=== PATIENT | male | born 1950 | race Caucasian/White ===

== ENCOUNTER 2017-03-15 07:37 | Day surgery (SDC) | payer OTHER ==
[2017-03-15] VITALS (7 sets, daily range): BP systolic 142–145; BP diastolic 67–76; PULSE 66–84; RESP 16–17; TEMP 98.2–98.6; O2SAT 96–100
[~2017-03-15] VITALS: Ht 170.2 cm; Wt 93.2 kg
[2017-03-15] MEDS: NS 1000P @30 MLS/HR (KVO) IV SCH ×2 (08:15→09:00)
[2017-03-15 08:39] LABS: AUTOMATED NEUTROPHIL # 5.9 TH/MM3 (1.8-7.7); BASOPHIL % 0.6 % (0.0-2.0); EOSINOPHIL # 0.1 TH/MM3 (0-0.4); EOSINOPHIL % 1.1 % (0.0-4.0); HEMATOCRIT 44.3 % (39.0-51.0); HEMO FLAGS DIFF FINAL; LYMPH % 16.7 % (9.0-44.0); LYMPHOCYTE # 1.3 TH/MM3 (1.0-4.8); MEAN CELL VOLUME 85.1 FL (80.0-100.0); MEAN CORPUSCULAR HEMOGLOBIN 28.3 PG (27.0-34.0); MEAN CORPUSCULAR HGB CONC 33.3 % (32.0-36.0); MONO % 7.1 % (0.0-8.0); NEUT % 74.5 % (16.0-70.0); PLATELET COUNT 285 TH/MM3 (150-450); RED CELL DISTRIBUTION WIDTH 14.6 % (11.6-17.2); WHITE BLOOD COUNT 7.9 TH/MM3 (4.0-11.0)
[2017-03-15] MEDS ORDERED: BUSP5TAB PO (08:40)
[2017-03-15] MEDS ORDERED: SACU1TAB PO (08:40)
[2017-03-15] MEDS ORDERED: CHOL5000 PO (08:40)
[2017-03-15] MEDS ORDERED: LIPI40TA PO (08:40)
[2017-03-15] MEDS ORDERED: TAMS0.4C4 PO (08:40)
[2017-03-15] MEDS ORDERED: SPIR25TA PO (08:40)
[2017-03-15] MEDS ORDERED: ASPI-147 PO (08:40)
[2017-03-15] MEDS ORDERED: METO50TA PO (08:40)
[2017-03-15 08:47] LABS: PROTHROMBIN TIME - PATIENT 11.4 SEC (9.8-11.6)
[2017-03-15] MEDS ORDERED: HEPARIN-NS/PF INJ 500 ML ONE (13:59)
[2017-03-15] MEDS ORDERED: MIDAZOLAM HCL 2 MG/2 ML VIAL ONE (14:00)
[2017-03-15] MEDS ORDERED: NITROGLYCERIN INJ 5 ML ONE (14:00)
[2017-03-15] MEDS ORDERED: VERAPAMIL HCL 5 MG/2 ML VIAL ONE (14:00)
[2017-03-15] MEDS ORDERED: HEPARIN SODIUM - IV 10,000 UNITS/10 ML VIAL ONE ×2 (14:00→15:16)
[2017-03-15] MEDS ORDERED: IOHEXOL 350 MG/ML 100 ML BTL (for Cath Lab) OTHER ONE (14:13)
[2017-03-15] MEDS ORDERED: IOHEXOL 350 MG/ML 50 ML BTL (for Cath Lab) OTHER ONE (14:13)
[2017-03-15] MEDS ORDERED: TICAGRELOR 90 MG TAB PO ONE (16:19)
[2017-03-15] MEDS ORDERED: SODIUM CHLOR 0.9% 1000 ML INJ 1,000 ML IV SCH (16:32)
--- NOTE | 2017-03-15 16:32 | CATHPROC ---
[facility] Report Study Information Study Number Admission Scheduled Start Study Start [id number] Mar 15 2017 7:37AM 03/15/2017 Mar 15 2017 9:46AM [place] [facility] Cardiac Catheterization Admit Source Facility Department Other [facility] - [employer] Physician and Clinical Staff Initial Salvatore Wright Powertrain Control Systems Engineer Óscar RN, Giovany Recorder Juan Pablo Yeh,RT(R) John Moulton RCIS(BS) Procedures Performed Procedure Location (Site) Vessel Name Coronary Angiograms LCA Left Coronary Coronary Angiograms RCA Right Coronary Drug Eluting Inflatio LAD Mid Left Coronary PTCA LAD Mid Left Coronary Wire insertion Fem Art (right) Femoral Art Wire insertion LAD Mid Left Coronary Wire insertion Radial (right) Radial Art. Equipment Time Breakfast Supervisor Description Size Mfg Part Number Used/Scraped [id number] 15:26 BRADSHAW [employer] WIRE, ASAHI PROWATER 180CM 180CM Used *[id number] WIRE, BALANCE MIDDLEWEIGHT [id number] 15:10 [employer]AD[employer]W [employer] C[employer] 190CM Used 190CM *[id number] TRANSDUCER, TRUWAVE [id number] 14:07 BENZ IVERSON * Used W/STOCKCOCK *[id number] [employer]/ EP 15:10 GUIDEWIRE, BMW 190CM 190CM 6720 Used PACER [id number] *[id number] *[id number] [id number] *[id number] 14:07 Dragon Tail PACK, CCL CUSTOM * Used *[id number] 14:07 Dragon Tail SUPPORT, ARTERIAL ADULT 32860 *[id number] Used BALLOON, 2.25 X 10MM [id number] 15:16 MEDTRONIC 10MM Used EUPHORA *[id number] BALLOON, 2.25 X 6MM NC [id number] 15:37 MEDTRONIC 6MM Used EUPHORA *[id number] BALLOON, 2.5 X 8MM NC [id number] 16:00 MEDTRONIC 8MM Used EUPHORA *[id number] STENT, 2.5 12 RESOLUTE [id number] 15:22 MEDTRONIC 2.5 12 Used INTEGRITY RX *[id number] 15:17 Biomode - Biomolecular Determination 30 STIVEN INDEFLATOR Used *[id number] BAND, RADIAL COMPRESSION TR [id number] 16:10 Biomode - Biomolecular Determination 24CM Used SHORT 24 *[id number] 14:07 Biomode - Biomolecular Determination WIRE, EXCHANGE 260CM 3MMJ 260CM Used *[id number] 14:07 NAMIC MANIFOLD, 4 PORT * Used *[id number] 14:07 NYCOMED OMNIPAQUE, 350 MG, 150ML 150ML [id number] Used [id number] 14:07 SIGEL MEDICAL BLANKET,WARM AIR CCL * Used *[id number] SHEATH, FR6 TRANSRADIAL [id number] 14:07 TERUMIdenIve MEDICAL FR 6 Used SLENDER 10CM *[id number] 14:54 [place]OL[place]O PRIME WIRE, VERRATA 185CM 185CM 15737 *[id number] Used 15:00 [place]OL[place]O PRIME WIRE, VERRATA 185CM 185CM 50197 *[id number] Used Equipment Model, Serial, Lot Number and Expiration Data Description Model Number Serial Number Lot Number Expiration Date PRIME WIRE, VERRATA 185CM [id number] 02-03-2020 STENT, 2.5 12 RESOLUTE [id number] 01-14-2018 INTEGRITY RX History: Allergies Allergy Reaction Trazodone History: Risk Factors Family History of Hypertension Dyslipidemia Previous [facility] Previous Heart Failure Premature CAD Yes Yes Yes Yes Yes Prior Valve Prior PCI Prior CABG Surgery No No No Cerebrovascular Peripheral Artery Chronic Lung On Dialysis Diabetes Disease Disease Disease No No No No No History: Stress Tests Stress or Imaging Studies Performed Yes Standard Exercise Stress Test No Stress Echo No Stress Test SPECT Stress Test SPECT Result Stress Test SPECT Ischemia Risk/Extent Yes Positive High Stress Test CMR No Cardiac CTA Coronary Calcium Score No No History: Other Current Smoker Method Quit Packs a Day Years Used Pack Years No Cigarettes 25 Years Ago 30 30 Labs Hgb (g/dl) Hct (%) WBC (l/cumm) Platelets (thousands) 11.60-17.00 35.00-51.00 4.00-11.00 150.00-450.00 14.7 44.3 7.9 285 Glucose (mg/dl) BUN (mg/dl) Creatinine (mg/dl) BUN:Creatinine (1:x) 74.00-106.00 7.00-18.00 0.50-1.30 10.00-20.00 103 12 0.8 15 Na (meq/l) K (meq/l) 136.00-145.00 3.50-5.10 134 4.9 INR (PTT:PT) 0.90-1.10 1 CPK-MB (ng/ML) 0.50-3.60 Not Drawn Medication Medication Total Dose (Bolus/Oral) Medication Total Dosage/Unit 1% XYLOCAINE 5 mL BRILINTA 180 mg FENTANYL 25 mcg HEPARIN 1000 units RADIAL COCKTAIL 7 mL (Bolus) VERSED 0.5 mg Medications (Bolus/Oral) Medication Time Given Dosage/Unit Administered By Reason FENTANYL 03/15/2017 2:13:39 PM 25 mcg Giovany Cantrell RN 25 mcg FENTANYL given in lab by Giovany Cantrell RN in Left Antecubital via Peripheral IV. Ordered by Salvatore Acosta. 1% XYLOCAINE 03/15/2017 2:13:53 PM 5 mL Salvatore Walker 5 mL 1% XYLOCAINE given in lab by Salvatore Walker in Right Radial via Subcutaneous. Ordered by Salvatore Winn. VERSED 03/15/2017 2:14:00 PM 0.5 mg Giovany Cantrell RN 0.5 mg VERSED given in lab by Giovany Cantrell RN in Left Antecubital via Peripheral IV. Ordered by Salvatore Sanford. RADIAL COCKTAIL 03/15/2017 2:17:38 PM 7 mL (Bolus) Giovany Cantrell RN 7 mL (Bolus) RADIAL COCKTAIL given in lab by Giovany Cantrell RN in Right Radial via Radial. Using [Solut ion Name]. Ordered by Salvatore Walker. 2.5mg Verapamil, 200mcg Nitro, 3800units heparin HEPARIN 03/15/2017 3:18:50 PM 1000 units Giovany Cantrell RN 1000 units HEPARIN given in lab by Giovany Cantrell RN via Peripheral IV. Ordered by Salvatore Walker. BRILINTA 03/15/2017 4:21:27 PM 180 mg Giovany Cantrell RN 180 mg BRILINTA given in lab by Giovany Cantrell RN via Oral. Ordered by Salvatore Walker. Medication (Drip) Medication Time Given Dosage/Unit Concentration/Unit Diluent (ml) Solution IV Solutions 03/15/2017 2:03:13 PM 0 mL (IV) 500 NaCl .9 Patient arrived on IV Solutions given by Salvatore Walker in Left Antecubital via Peripheral IV. Pum p/Drip Flow = 20 ml/hr using NaCl .9. Ordered by Salvatore Walker. Initial Case Assessment Cardiovascular HR Rhythm NIBP Chest Pain 89 sr 150/77 0 Edema Present Skin color Skin None Normal Warm Dry Circulatory - Right Pulses Dorsalis Pedis Femoral Radial 1 1 2 Scale (0,1,2,3,4,d) Circulatory - Left Pulses Dorsalis Pedis Femoral Radial 1 1 Scale (0,1,2,3,4,d) Neurological State Oriented to time-place- Alert Moves all extremities person Respiration - General Respiration Rate SpO2 (%) O2 (lpm) (B/min) 18 98 0 Final Case Assessment Cardiovascular HR Rhythm NIBP Chest Pain 76 sr 120/79 0 Edema Present Skin color Skin None Normal Warm Dry Circulatory - Right Pulses Dorsalis Pedis Femoral Radial 1 1 2 Scale (0,1,2,3,4,d) Circulatory - Left Pulses Dorsalis Pedis Femoral Radial 1 1 Scale (0,1,2,3,4,d) Neurological State Oriented to time-place- Alert Moves all extremities person Respiration - General Respiration Rate SpO2 (%) O2 (lpm) (B/min) 18 98 0 Chronological Log Time Study Chronological Log 13:50:46 Patient arrived via Bed. 13:50:47 Patient Name, D.O.B, / Armband Verified By R.N. 13:50:48 Consent signed by the physician and the patient and verified by the [employer] staff. 13:50:49 Pre-op and post- op instructions given; patient acknowledges understanding of instructions. 13:51:03 Verbal Stimulation=2 Physical Stimulation=2 Airway=2 Respiration=2 TOTAL=8. (0=absent, 1=li mited, 2=present) 13:51:11 Presedation assessment performed by [employer] RN. 13:51:13 Patient has been NPO for More than 6Hrs. Vitals capture started with the following parameters, Patient=Adult, Interval=5 min, Initial Pr ofyien=292 mmHg, 13:59:28 Deflation Rate=5 mmHg, Cuff placed on Right Arm 14:00:07 HR=81 bpm, LLMS=250/77 mmhg, SpO2=99.0 %, Resp=19 B/min, Walsh=2 14:02:39 Skin Breakdown-none present per patient. 14:02:54 A # 20 IV was noted in the Antecubital (left). Grade = 0 Patient arrived on IV Solutions given by Salvatore Walker in Left Antecubital via Peripheral I V. Pump/Drip Flow = 20 14:03:13 ml/hr using NaCl .9. Ordered by Salvatore Walker. 14:03:36 History and physical on the chart or being dictated. Assessment: Initial Case, HR=89 BPM, Rhythm=sr, YKLK=191/77 mmhg, Chest Pain=0, Edema=None, Col or=Normal, Skin = Warm, Dry Right Pulses: Robin Ped=1, Femoral=1, Radial=2 14:03:38 Left Pulses: Robin Ped=1, Femoral=1 Neurological: State=Alert, Ox3, PROCTOR Respiration: Resp=18 B/min, SpO2=98 %, O2=0 lpm 14:03:42 Reference ECG taken 14:04:10 Bilateral groins and right radial prepped with 2% chlorhexidine, and with a 3 min. waiting time. 14:05:08 HR=83 bpm, UTGW=985/75 mmhg, SpO2=99.0 %, Resp=21 B/min, Walsh=2 14:09:35 MD arrived. 14:09:59 Pressure channel 1 zeroed. 14:10:09 HR=79 bpm, MVPV=836/77 mmhg, SpO2=98.0 %, Resp=16 B/min, Walsh=2 Time Out. Correct patient, correct procedure,correct physician, ,power injector not loaded with contrast with surgical 14:12:37 team present. Time Out Concurred by MD, individual staff and REVIEW TRAINER in procedure. Not loaded at t his time. 14:13:09 Presedation re-assessment performed by [employer] RN. 14:13:11 Case Start 14:13:35 Verbal Stimulation=2 Physical Stimulation=2 Airway=2 Respiration=2 TOTAL=8. (0=absent, 1=li mited, 2=present) 14:13:39 25 mcg FENTANYL given in lab by Giovany Cantrell RN in Left Antecubital via Peripheral IV. Orde red by Salvatore Walker. 14:13:53 5 mL 1% XYLOCAINE given in lab by Salvatore Walker in Right Radial via Subcutaneous. Order ed by Salvatore Walker. 14:14:00 0.5 mg VERSED given in lab by Giovany Cantrell RN in Left Antecubital via Peripheral IV. Ordere d by Salvatore Walker. 14:15:08 HR=83 bpm, KGBN=589/77 mmhg, SpO2=99.0 %, Resp=12 B/min, Walsh=2 14:17:12 Access site was Radial Artery. right radial A SHEATH, FR6 TRANSRADIAL SLENDER 10CM FR 6 was advanced into the Radial (right) using the Perc utaneous 14:17:24 technique. 7 mL (Bolus) RADIAL COCKTAIL given in lab by Giovany Cantrell RN in Right Radial via Radial. Using [Solution Name]. 14:17:38 Ordered by Salvatore Walker. 2.5mg Verapamil, 200mcg Nitro, 3800units heparin A JR 4.0 INFINITI CATHETER FR 5 was advanced over a wire. OMNIPAQUE, 350 MG, 150ML 150ML was us ed for 14:19:03 injections. 14:20:07 HR=98 bpm, OUTD=711/74 mmhg, SpO2=99.0 %, Resp=21 B/min, Walsh=2 Recorded Pressure: LV, HR=97, Condition=Condition 1 14:20:34 (Left Ventricle) LV 116/4/4 Recorded Pressure: LV, Ao, HR=99, Condition=Condition 1 14:21:04 (Left Ventricle) LV 118/5/7, (Aorta) Ao 114/67/86 14:21:19 The RCA was injected and visualized at various angles. OMNIPAQUE, 350 MG, 150ML 150ML used . After removing the current catheter a JL 3.5 INFINITI CATHETER FR 5 was advanced over a WIRE, E XCHANGE 260CM 14:24:32 3MMJ 260CM. 14:25:04 CY=668 bpm, FIRD=767/78 mmhg, SpO2=96.0 %, Resp=17 B/min, Walsh=2 14:25:43 The LCA was injected and visualized at various angles. OMNIPAQUE, 350 MG, 150ML 150ML used . Recorded Pressure: Ao, HR=99, Condition=Condition 1 14:26:45 (Aorta) Ao 127/65/93 14:30:05 HR=89 bpm, TZBR=166/71 mmhg, SpO2=97.0 %, Resp=13 B/min, Walsh=2 After removing the current catheter a JL 3.0 GUIDE CATHETER FR 6 was advanced over a WIRE, EXCH RYANN 260CM 14:33:29 3MMJ 260CM. 14:35:08 HR=81 bpm, QWJK=344/70 mmhg, SpO2=93.0 %, Resp=15 B/min, Walsh=2 14:40:42 HR=76 bpm, MDST=554/69 mmhg, SpO2=97.0 %, Resp=19 B/min, Walsh=2 14:45:08 HR=77 bpm, PUUU=500/71 mmhg, SpO2=96.0 %, Resp=19 B/min 14:50:07 HR=77 bpm, CQJP=115/73 mmhg, SpO2=98.0 %, Resp=15 B/min, Walsh=2 14:53:35 A PRIME WIRE, VERRATA 185CM 185CM was inserted via Radial (right). 14:55:06 HR=82 bpm, HYUM=152/72 mmhg, SpO2=96.0 %, Resp=16 B/min, Walsh=2 14:59:51 Pressure wire removed. Not working properly. 15:00:10 HR=77 bpm, BRPK=680/64 mmhg, SpO2=97.0 %, Resp=17 B/min, Walsh=2 15:02:26 A PRIME WIRE, VERRATA 185CM 185CM was inserted via Radial (right). 15:05:11 HR=75 bpm, ZHRE=014/65 mmhg, SpO2=96.0 %, Resp=21 B/min, Walsh=2 15:08:00 Interventional wire has crossed the lesion 15:08:42 Flow Wire was was placed in the LAD Mid. The FFR measures. The IFR measures 0.83 Percent. 15:10:06 HR=76 bpm, VRUO=718/71 mmhg, SpO2=97.0 %, Resp=18 B/min, Walsh=2 15:11:08 Activated Clotting Time Drawn 15:12:20 A WIRE, BALANCE MIDDLEWEIGHT 190CM 190CM was inserted via Fem Art (right). 15:13:53 Interventional wire has crossed the lesion wire placed down Diag. 15:15:09 HR=81 bpm, QAQB=041/64 mmhg, SpO2=97.0 %, Resp=20 B/min, Walsh=2 15:15:53 ACT (Normal Range 90-180) = 265 15:16:40 A BALLOON, 2.25 X 10MM EUPHORA 10MM was inserted over PRIME WIRE, VERRATA 185CM 185CM via t he LAD Mid. A BALLOON, 2.25 X 10MM EUPHORA 10MM over a WIRE, BALANCE MIDDLEWEIGHT 190CM 190CM in the LAD Mi d was 15:16:56 inflated using a 30 STIVEN INDEFLATOR at 8 stiven for 50 sec. 15:18:50 1000 units HEPARIN given in lab by Giovany Cantrell RN via Peripheral IV. Ordered by Salvatore Walker. 15:20:12 HR=90 bpm, NIBP=84/60 mmhg, Resp=25 B/min, Walsh=2 15:21:07 Balloon Removed. 15:25:46 HR=71 bpm, [facility]=539/60 mmhg, SpO2=97.0 %, Resp=20 B/min, Walsh=2 15:26:44 A WIRE, ASAHI PROWATER 180CM 180CM was inserted via LAD Mid. 15:30:12 HR=75 bpm, RYRU=663/66 mmhg, SpO2=89.0 %, Resp=24 B/min, Walsh=2 15:31:12 Interventional wire has crossed the lesion 15:31:14 Wire removed Pressure wire 15:32:12 Activated Clotting Time Drawn A STENT, 2.5 12 RESOLUTE INTEGRITY RX 2.5 12 was advanced through a JL 3.0 GUIDE CATHETER FR 6 over a WIRE, 15:34:15 ASAHI PROWATER 180CM 180CM. 15:35:09 HR=73 bpm, ALBD=722/73 mmhg, SpO2=97.0 %, Resp=24 B/min, Walsh=2 15:36:08 Stent not deployed. Stent removed and intact. A BALLOON, 2.25 X 6MM NC EUPHORA 6MM was inserted over WIRE, ASAHI PROWATER 180CM 180CM via the LAD 15:38:38 Mid. A BALLOON, 2.25 X 6MM NC EUPHORA 6MM over a WIRE, ASAHI PROWATER 180CM 180CM in the LAD Mid was 15:38:47 inflated using a 30 STIVEN INDEFLATOR at 14 stiven for 25 sec. A BALLOON, 2.25 X 6MM NC EUPHORA 6MM over a WIRE, ASAHI PROWATER 180CM 180CM in the LAD Mid was 15:39:12 inflated using a 30 STIVEN INDEFLATOR at 12 stiven for 10 sec. 15:40:18 HR=40 bpm, AUAI=594/59 mmhg, SpO2=96.0 %, Resp=22 B/min, Walsh=2 15:40:44 Balloon Removed. A STENT, 2.5 12 RESOLUTE INTEGRITY RX 2.5 12 was advanced through a JL 3.0 GUIDE CATHETER FR 6 over a WIRE, 15:42:28 ASAHI PROWATER 180CM 180CM. A STENT, 2.5 12 RESOLUTE INTEGRITY RX 2.5 12 was deployed using a 30 STIVEN INDEFLATOR at 9 atmosp heres for 30 15:42:55 seconds in the LAD Mid. 15:45:21 HR=73 bpm, ABHM=324/58 mmhg, SpO2=97.0 %, Resp=29 B/min, Walsh=2 15:48:32 Delivery device removed 15:50:14 HR=75 bpm, KVIZ=692/63 mmhg, SpO2=98.0 %, Resp=21 B/min, Walsh=2 15:55:19 HR=79 bpm, WCWW=640/67 mmhg, SpO2=97.0 %, Resp=21 B/min, Walsh=2 16:00:18 HR=82 bpm, GTVL=485/65 mmhg, SpO2=89.0 %, Resp=23 B/min, Walsh=2 16:00:58 A BALLOON, 2.5 X 8MM NC EUPHORA 8MM was inserted over WIRE, ASAHI PROWATER 180CM 180CM via the LAD Mid. A BALLOON, 2.5 X 8MM NC EUPHORA 8MM over a WIRE, ASAHI PROWATER 180CM 180CM in the LAD Mid was inflated 16:01:13 using a 30 STIVEN INDEFLATOR at 12 stiven for 15 sec. A BALLOON, 2.5 X 8MM NC EUPHORA 8MM over a WIRE, ASAHI PROWATER 180CM 180CM in the LAD Mid was inflated 16:02:17 using a 30 STIVEN INDEFLATOR at 16 stiven for 20 sec. 16:05:00 Balloon Removed. 16:05:15 HR=77 bpm, UFPK=476/83 mmhg, SpO2=97.0 %, Resp=22 B/min, Walsh=2 16:08:20 Wire removed BMW 16:09:53 Wire removed Prowater 16:10:14 HR=80 bpm, AZFS=379/79 mmhg, SpO2=95.0 %, Resp=27 B/min, Walsh=2 16:10:28 Catheter was removed OTW. Assessment: Final Case, HR=76 BPM, Rhythm=sr, AZJC=922/79 mmhg, Chest Pain=0, Edema=None, Barre r=Normal, Skin = Warm, Dry Right Pulses: Robin Ped=1, Femoral=1, Radial=2 16:11:36 Left Pulses: Robin Ped=1, Femoral=1 Neurological: State=Alert, Ox3, PROCTOR Respiration: Resp=18 B/min, SpO2=98 %, O2=0 lpm 16:12:27 Catheter(s) removed without difficulty 16:12:35 Case End Radial Compression Device Used. 10 mLs of air placed in BAND, RADIAL COMPRESSION TR SHORT 24 2 4CM. Affected 16:12:38 hand 97 % O2 saturation. 16:12:56 No case complications noted. 16:12:58 Cine recording checked. 16:13:01 Bedside Report will be given. 16:13:04 Implantable Device card placed in patient's chart. 16:15:18 HR=76 bpm, ZVFP=512/73 mmhg, SpO2=97.0 %, Resp=23 B/min, Walsh=2 16:18:40 Vitals capture stopped. 16:21:27 180 mg BRILINTA given in lab by Giovany Cantrell RN via Oral. Ordered by Salvatore Walker. 16:23:53 [facility] End Study - Contrast Media Used In Study Contrast Total Opened (mL) Total Used (mL) Total Wasted (mL) Omnipaque 210 210 0 End Study - Maximum Contrast Load Max Contrast Load (mL) 578.7 End Study - Radiation Exposure Fluoro Time (minutes) 41.1 End Study - Patient Disposition Complications Transferred To Interventional Outcome No Telemetry Bed successful
[2017-03-15] MEDS ORDERED: oxyCODONE/ACETAMINOPHEN 5 MG/325 MG TAB PO PRN (16:45)
[2017-03-15] MEDS ORDERED: MORPHINE SULFATE 4 MG/ML INJ IV PUSH PRN (16:45)
[2017-03-15] MEDS ORDERED: ONDANSETRON HCL 4 MG/2 ML VIAL IVP PRN (16:45)
[2017-03-15] MEDS ORDERED: ACETAMINOPHEN 325 MG TAB PO PRN (16:45)
[2017-03-15] MEDS ORDERED: oxyCODONE/ACETAMINOPHEN 10 MG/325 MG TAB PO PRN (16:45)
[2017-03-15] MEDS: busPIRone HCL 5 MG TAB PO SCH (17:48)
[2017-03-15] MEDS ORDERED: ATORVASTATIN 40 MG TAB PO SCH (21:00)
[2017-03-15] MEDS: METOPROLOL TARTRATE 25 MG TAB PO SCH (21:08)
[2017-03-15] MEDS: TICAGRELOR 90 MG TAB PO SCH (21:08)
[2017-03-16] VITALS (10 sets, daily range): BP systolic 106–141; BP diastolic 48–77; PULSE 63–81; RESP 16–19; TEMP 98–98.5; O2SAT 99–100
--- NOTE | 2017-03-16 06:44 | MH ---
cc: SALVATORE GENAO DO DATE OF ADMISSION 03/15/2017 REASON FOR ADMISSION Status post PCI HISTORY OF PRESENT ILLNESS Ted Meraz is a pleasant 66-year-old male who presented to [facility] for elective coronary angiography on March 15, 2017. During this, he was found to have significant disease in his LAD and underwent PCI from a radial standpoint. He originally presented to the office with new onset cardiomyopathy and was found to have an ischemic lesion in the anterior wall on stress testing as well as infarction of his inferior wall. Symptomwise, he has significant shortness of breath with moving and notices fatigue daily with housework. PAST MEDICAL HISTORY 1. Coronary artery disease 2. Congestive heart failure [place] Heart Association class 2 3. Anxiety/depression 4. Hyperlipidemia 5. Hypertension PAST SURGICAL HISTORY 1. Cardiac catheterization (March 15, 2017) left main normal. Previous stent and proximal LAD patent, distal to this, there is a 70% lesion status post Resolute drug-eluting stent (2.5 x 12). Left circumflex is an overall small vessel with 20-30% disease. RCA has a 99% lesion in the midportion. 2. Hernia repair 3. Previous intervention on the LAD (November 2000) with a Multilink bare metal stent (3.5 x 13). ALLERGIES TRAZODONE MEDICATIONS 1. Aspirin 81 mg daily 2. Flomax 0.4 mg daily 3. Entresto 24/26 b.i.d. 4. Buspirone 5 mg t.i.d. 5. Metoprolol tartrate 25 mg b.i.d. 6. Lipitor 40 mg every night 7. Spironolactone 25 mg daily FAMILY HISTORY Father from a massive heart attack at the age of 52. SOCIAL HISTORY The patient occasionally drinks beer. Previously smoked, but quit 25-30 years ago. REVIEW OF SYSTEMS 14-systems were reviewed as above. Pertinent positives and negatives as above, otherwise negative. PHYSICAL EXAMINATION VITAL SIGNS: Temperature 98.2, heart rate 77, blood pressure 144/76, respirations 16, pulse ox 100% on room air. GENERAL: The patient appears well in no acute distress, alert awake and oriented x3. HEAD, EYES, EARS, NOSE, AND THROAT: Extraocular muscles intact. Mucous membranes moist. NECK: Supple. No JVD at 45 degrees. No carotid bruits heard bilaterally. Carotid upstroke is brisk in nature. HEART: Regular rate and rhythm. Positive first and second heart sounds with no murmurs, gallops or rubs. PMI is nondisplaced. LUNGS: Clear to auscultation bilaterally. No wheezes, rales or rhonchi. ABDOMEN: Soft, nontender, nondistended. No organomegaly noted. EXTREMITIES: Show no clubbing, cyanosis or edema. Femoral and distal pulses intact bilaterally. NEUROLOGIC: No focal deficits. SKIN: Warm, dry and intact. OSTEOPATHIC: No kyphoscoliosis, lordosis or paraspinal tender points. LABORATORY FINDINGS Hemoglobin 14.7, hematocrit 44.3, platelets 285. IMPRESSIONS 1. New ischemic cardiomyopathy with an ejection fraction of 15-20%. 2. Coronary artery disease status post Resolute drug-eluting stent (2.5 x 12) distal to his previous stent in the midportion of the LAD. He also has a 99% RCA lesion with stress testing showing previous infarction of the inferior wall. 3. Abnormal stress test. 4. Hypertension 5. Hyperlipidemia 6. Premature coronary artery disease for a family history. RECOMMENDATIONS 1. Mr. Meraz presented and underwent PCI of his LAD. He will be placed on aspirin and Brilinta. 2. He will be watched overnight and if stable in the morning discharged home. 3. Consideration could be made for a viability study as he does have a 99% RCA lesion, although stress testing shows infarction of this. If viable, consideration could be made for a PCI of the RCA. 4. Entresto will be held until creatinine in the morning is reviewed. 5. In the outpatient office, a LifeVest has been ordered by Dr. Iniguez. 6. Upon discharge, he will follow up with Dr. Iniguez. Thank you for allowing me to see Ted Meraz. If there are any questions, please do not hesitate to call. Salvatore Genao DO VGP/DJL /11:50 PM /6:28 AM
[2017-03-16 06:47] LABS: AUTOMATED NEUTROPHIL # 5.9 TH/MM3 (1.8-7.7); BASOPHIL % 0.6 % (0.0-2.0); EOSINOPHIL # 0.1 TH/MM3 (0-0.4); EOSINOPHIL % 1.2 % (0.0-4.0); HEMO FLAGS DIFF FINAL; LYMPHOCYTE # 1.3 TH/MM3 (1.0-4.8); MEAN CELL VOLUME 84.1 FL (80.0-100.0); MEAN CORPUSCULAR HGB CONC 34.4 % (32.0-36.0); NEUT % 74.2 % (16.0-70.0); PLATELET COUNT 236 TH/MM3 (150-450); RED BLOOD COUNT 4.64 MIL/MM3 (4.50-5.90); RED CELL DISTRIBUTION WIDTH 14.7 % (11.6-17.2)
--- NOTE | 2017-03-16 07:02 | MA ---
cc: SALVATORE GENAO DO DATE 03/15/2017 PROCEDURE Left heart catheterization, coronary angiogram, IFR LAD, Resolute drug-eluting stent (2.5 x 12) to the LAD, moderate sedation 120 minutes. PREPROCEDURE DIAGNOSIS New cardiomyopathy with an ejection fraction of 15-20%, abnormal stress test (high risk), shortness of breath. POSTPROCEDURE DIAGNOSIS Coronary artery disease status post Resolute drug-eluting stent (2.5 x 12) to the mid-LAD. MEDICATIONS 1. Versed 0.5 mg 2. Fentanyl 25 mcg 3. Verapamil 2.5 mg 4. Heparin 4800 units 5. Nitro 200 mcg 6. Brilinta 180 mg CONTRAST USED 210. FLUOROSCOPY 41.1 minutes ANESTHESIA Moderate sedation 120 minutes ESTIMATED BLOOD LOSS 20 CC PROCEDURAL SUMMARY Ted Meraz is a pleasant 66-year-old male who presented to the outpatient office and was found to have a new cardiomyopathy. He underwent a pharmacologic nuclear stress test which showed inferior infarct and a personal to moderate size anterior ischemic area. Because of this, he was recommended cardiac catheterization. Risks, benefits and alternatives were explained to him and he consented as such. He was brought to the lab and prepped in the usual sterile fashion. The right radial artery was accessed using a modified Seldinger technique and placement of a 5/6 Armenian slender sheath. This was easily aspirated and flushed. The JR-4 was advanced over a J-wire to the ascending aorta and across the aortic valve to measure left ventricular pressures. This was pulled back across the aortic valve showing no significant gradient of aortic stenosis. JR-4 was then used for selective angiography of the right coronary system. This was exchanged out for a JL-3.5 catheter which was unable to engage the left main. This was then exchanged for a JL-3 guide which was used for selective angiography of the left coronary system. Please see below for intervention. After the procedure, JL-3 guide was removed over a J-wire. A radial band was placed over the arteriotomy site for hemostasis. The patient was given 180 of Brilinta. He left the laborer heading cardiovascularly stable. FINDINGS Left main normal size vessel with 10% disease distally. It bifurcates into an LAD and circumflex. LAD normal-size vessel with a moderate lesion in the midportion just before the takeoff of the first diagonal. Otherwise, no significant disease distally. It gives off two major diagonals with no significant disease. Left circumflex is a relatively small to moderate sized vessel with mild luminal irregularities throughout. It gives off one small obtuse marginal with no significant disease. RCA normal-size vessel with a 99% lesion in the midportion. Otherwise no significant disease. LVEDP 7. INTERVENTION The patient was noted to have a 99% RCA lesion, but on his stress test this was found to be an infarcted area. He was also found to have a moderate lesion in the midportion of the LAD. Overall, one view appears to be close to 70%, but other views appear to be around 50%. Because of this, I felt that this needed to be further investigated. The patient was given heparin as an additional anticoagulant. Frontenac wire was advanced into the distal LAD. IFR was taken and was 0.83 showing significant physiologic stenosis. A BMW wire was advanced down the diagonal for protection. A compliant balloon (2.25 x 10) was advanced and inflated over the lesion. At this time, the volcano wire ended up having a kink at the distal portion of it outside the body and I was unable to straighten the kink or place a stent onto the wire and because of this, a Prowater wire was then advanced to the distal portion of the LAD and a volcano wire was removed. A Resolute drug-eluting stent (2.5 x 12) was then inserted, but unable to cross the lesion and so it was removed. The noncompliant balloon (2.25 x 6) was then advanced and further dilated the lesion. At this time, the Resolute drug-eluting stent (2.5 x 12) was advanced and inflated over the lesion. The BMW wire in the diagonal was then pulled back and advanced into the stent and then into the diagonal. A noncompliant balloon (2.5 x 8) was then used to post dilate the stent. Both wires were then pulled back and both shots show a well-opposed stent with no dissection or perforation, with MAICOL-III flow down the diagonal. The guide catheter was then removed over a J-wire. IMPRESSION 1. New ischemic cardiomyopathy with an ejection fraction of 15-20%. 2. Coronary artery disease status post Resolute drug-eluting stent (2.5 x 12) to the mid-LAD with a 99% lesion in the RCA but infarction on his stress test of the inferior wall. 3. Shortness of breath. RECOMMENDATIONS 1. Mr. Meraz appears to have ischemic cardiomyopathy and underwent drug-eluting stent placement in his LAD. Because of this, he will he placed on aspirin and Brilinta. 2. He will be watched overnight with the plan for discharge in the morning. 3. His LVEDP is relatively well and he will be given light fluids due to receiving 210 cc of dye. 4. He will follow up in the outpatient office with Dr. Iniguez and consideration could be made for a viability study for the possibility of intervention on his RCA if the inferior wall shows it is viable. 5. He will continue on beta wesley therapy. 6. He will not be placed on ABELARDO inhibitor therapy as he is on Entresto. 7. In the outpatient office, he has been ordered a LifeVest. Thank you for allowing me to see Ted Meraz. If there are any questions, please do not hesitate to call. Salvatore Genao DO VGP/DJL /11:32 PM /6:38 AM
[2017-03-16 07:09] LABS: BICARBONATE 25.8 MEQ/L (21.0-32.0); POTASSIUM 4.3 MEQ/L (3.5-5.1)
[2017-03-16] MEDS: NS 1000P @30 MLS/HR (KVO) IV SCH ×2 (08:15→08:43)
[2017-03-16] MEDS: METOPROLOL TARTRATE 25 MG TAB PO SCH (08:43)
[2017-03-16] MEDS: busPIRone HCL 5 MG TAB PO SCH (08:43)
[2017-03-16] MEDS: TICAGRELOR 90 MG TAB PO SCH (08:43)
[2017-03-16] MEDS ORDERED: TAMSULOSIN HCL 0.4 MG CAP PO SCH (09:00)
[2017-03-16] MEDS ORDERED: CHOLECALCIFEROL (VIT D3) 5000 UNIT CAP PO SCH (09:00)
--- NOTE | 2017-03-16 09:02 | PD.CARD.PN ---
Subjective Subjective Remarks No events overnight No chest pain/SOB Objective Medications Current Medications Medications (Trade) Dose Ordered Sig/Kendal Route Start Time Stop Time Status Last Admin Sodium Chloride 1,000 ml @ 30 mls/hr Q24H IV 03/15/17 08:15 (NS 1000 ml Inj) 1,000 ml @ 30 mls/hr Q24H IV 03/15/17 09:00 (Tylenol) 325 mg Q4H PRN PO 03/15/17 16:45 (Percocet 5-325 Mg) 1 tab Q4H PRN PO 03/15/17 16:45 (Percocet 10-325 Mg) 1 tab Q4H PRN PO 03/15/17 16:45 (Morphine Inj) 2 mg Q30M PRN IV PUSH 03/15/17 16:45 (Zofran Inj) 4 mg Q6H PRN IVP 03/15/17 16:45 (Brilinta) 90 mg BID PO 03/15/17 21:00 03/16/17 08:43 (Lipitor) 40 mg HS PO 03/15/17 21:00 03/15/17 21:08 (Buspar) 5 mg TID PO 03/15/17 18:00 03/16/17 08:43 (Vitamin D3) 5,000 units DAILY PO 03/16/17 09:00 03/16/17 08:43 (Lopressor) 25 mg BID PO 03/15/17 21:00 03/16/17 08:43 (Flomax) 0.4 mg DAILY PO 03/16/17 09:00 03/16/17 08:42 Vital Signs / I&O Vital Signs Date Time Temp Pulse Resp B/P Pulse Ox O2 Delivery O2 Flow Rate FiO2 03/16/17 06:00 63 03/16/17 05:00 69 03/16/17 04:00 67 03/16/17 04:00 98.3 67 16 106/48 100 03/16/17 03:00 73 03/16/17 02:00 77 03/16/17 01:00 78 03/16/17 00:00 74 03/16/17 00:00 98.5 74 16 121/65 100 03/15/17 23:00 80 03/15/17 22:00 84 03/15/17 21:00 84 03/15/17 20:00 98.6 76 16 145/67 96 03/15/17 20:00 78 03/15/17 19:00 82 03/15/17 17:30 66 17 142/76 96 03/15/17 16:26 99 Room Air I/O 03/15/17 03/15/17 03/15/17 03/16/17 03/16/17 03/16/17 06:59 14:59 22:59 06:59 14:59 22:59 Intake Total 720 ml Output Total 955 ml Balance -235 ml Intake Oral 240 ml IV Total 480 ml Output Urine Total 955 ml # Bowel Movements 0 Physical Exam GENERAL: NAD, AAOx3 SKIN: Warm and dry. HEAD: Atraumatic. Normocephalic. EYES: Pupils equal and round. No scleral icterus. No injection or drainage. ENT: No nasal bleeding or discharge. Mucous membranes pink and moist. NECK: Trachea midline. No JVD. CARDIOVASCULAR: Regular rate and rhythm. RESPIRATORY: No accessory muscle use. Clear to auscultation. Breath sounds equal bilaterally. GASTROINTESTINAL: Abdomen soft, non-tender, nondistended. Hepatic and splenic margins not palpable. MUSCULOSKELETAL: Extremities without clubbing, cyanosis, or edema. No obvious deformities. Right radial no hematoma, neurovascularly intact distally NEUROLOGICAL: Awake and alert. No obvious cranial nerve deficits. Motor grossly within normal limits. Five out of 5 muscle strength in the arms and legs. Normal speech. PSYCHIATRIC: Appropriate mood and affect; insight and judgment normal. Laboratory Laboratory Tests Test 03/16/17 06:25 White Blood Count 8.0 TH/MM3 Red Blood Count 4.64 MIL/MM3 Hemoglobin 13.4 GM/DL Hematocrit 39.0 % Mean Corpuscular Volume 84.1 FL Mean Corpuscular Hemoglobin 29.0 PG Mean Corpuscular Hemoglobin 34.4 % Concent Red Cell Distribution Width 14.7 % Platelet Count 236 TH/MM3 Mean Platelet Volume 7.0 FL Neutrophils (%) (Auto) 74.2 % Lymphocytes (%) (Auto) 16.0 % Monocytes (%) (Auto) 8.0 % Eosinophils (%) (Auto) 1.2 % Basophils (%) (Auto) 0.6 % Neutrophils # (Auto) 5.9 TH/MM3 Lymphocytes # (Auto) 1.3 TH/MM3 Monocytes # (Auto) 0.6 TH/MM3 Eosinophils # (Auto) 0.1 TH/MM3 Basophils # (Auto) 0.0 TH/MM3 CBC Comment DIFF FINAL Differential Comment Sodium Level 136 MEQ/L Potassium Level 4.3 MEQ/L Chloride Level 102 MEQ/L Carbon Dioxide Level 25.8 MEQ/L Anion Gap 8 MEQ/L Blood Urea Nitrogen 11 MG/DL Creatinine 0.90 MG/DL Estimat Glomerular Filtration 84 ML/MIN Rate Random Glucose 103 MG/DL Calcium Level 8.5 MG/DL Assessment and Plan Problem List: (1) CAD (coronary artery disease) (2) Cardiomyopathy (3) HTN (hypertension) (4) HLD (hyperlipidemia) Assessment and Plan 1) ICM EF 15-20% 2) CAD s/p Resolute ALPHONSO (2.5x12) to LAD Residual RCA disease with infarction of the inferior wall on nuclear 3) Plan DC today 4) Follow up with Dr. Iniguez for consideration of viability study for inferior infarction 5) Lifevest on order in the office 6) ASA/Brilinta Will call to see how much refills are, and if too expensive will call to change to Plavix Salvatore Walker DO Mar 16, 2017 09:02
[2017-03-16] MEDS ORDERED: BRIL90TA PO ×2 (09:04→09:10)
--- NOTE | 2017-03-16 09:06 | HHI.DS ---
Discharge Summary Admission Date 03/15/17 Discharge Date: Mar 16, 2017 Admitting Diagnosis ICM EF 15-20%, CAD s/p ALPHONSO to LAD (1) Cardiomyopathy Diagnosis: Principal (2) CAD (coronary artery disease) Diagnosis: Principal (3) HTN (hypertension) Diagnosis: Secondary (4) HLD (hyperlipidemia) Diagnosis: Secondary Procedures CAD s/p ALPHONSO to LAD Residual RCA disease with infarction on nuclear CBC/BMP: 03/16/17 0625 03/16/17 0625 Significant Findings Laboratory Tests Test 03/15/17 03/16/17 08:25 06:25 Neutrophils (%) (Auto) 74.5 % 74.2 % (16.0-70.0) (16.0-70.0) Estimat Glomerular Filtration 84 ML/MIN (>89) Rate Pt Condition on Discharge: Good Discharge Disposition: Discharge Home Discharge Instructions DIET: Follow Instructions for: Heart Healthy Diet Activities you can perform: See Additionl Instruction Additional Activity Instructio: No lifting more than 10 lbs for 3 days Salvatore Walker DO Mar 16, 2017 09:06
--- NOTE | 2017-03-16 16:40 | EKG ---
Date Performed: 03/15/2017 Time Performed: 08:40:22 PTAGE: 66 years EKG: Sinus rhythm with 1st degree A-V block Left bundle branch block There is one ectopic beat present. Abnormal ECG NO PREVIOUS TRACING DOCTOR: Javon Garzon Interpretating Date/Time 03/16/2017 16:38:38
[2017-03-17] MEDS ORDERED: ASPIRIN EC 81 MG TABEC PO SCH (09:00)
== END 2017-03-16 10:18 | disposition home or self-care (01) ==
LOC: HCAT 07:37 → HDIC 07:39 → HCAT 18:08 → UNDOADMIN 18:08 → HCIN 18:08 → HDIC 18:24 → HCIN 18:24 → HCAT 03-16 10:18
PROVIDERS: ATTEND Nuclear Medicine Nuclear Cardiology
DX: I25.10 Atherosclerotic heart disease of native coronary artery without angina pectoris (principal); I25.5 Ischemic cardiomyopathy; I50.9 Heart failure, unspecified; R06.02 Shortness of breath; E78.5 Hyperlipidemia, unspecified; I10 Essential (primary) hypertension; Z01.818 Encounter for other preprocedural examination
CPT/HCPCS: 80048; 85002; 85025; 85610; 85730; 92928; 93005; 93454; 93571; C1725; C1769; C1874; C1887; C1893; J1644; J2250; J3010; J7030; Q9967

== ENCOUNTER 2017-07-18 08:49 | Day surgery (SDC) | payer OTHER ==
[~2017-07-18] VITALS: Ht 170.2 cm; Wt 90.0 kg
[2017-07-18] VITALS (8 sets, daily range): BP systolic 88–120; BP diastolic 53–67; PULSE 78–98; RESP 17–18; TEMP 98–98.3; O2SAT 96–100
[~2017-07-18 08:49] MED LIST: ASPI-147 PO; BRIL90TA PO; BUSP5TAB PO; CHOL5000 PO; LIPI40TA PO; METO50TA PO; SACU1TAB PO; SPIR25TA PO; TAMS0.4C4 PO
[2017-07-18] MEDS ORDERED: POVIDONE IODINE 5% (ANTISEPSIS KIT) 4 APPLICATIONS EACH NARE SCH (10:00)
[2017-07-18] MEDS ORDERED: NO Heparin, Lovenox, Coumadin at least 12 hours prior to procedure. PRN (10:00)
[2017-07-18] MEDS ORDERED: CHLORHEXIDINE GLUCONATE 2 % 1 PACK (2 CLOTHS) TOPICAL SCH (10:00)
[2017-07-18] MEDS ORDERED: Hold AM Insulin & AM Hypoglycemic medications in diabetic patients PRN (10:00)
[2017-07-18] MEDS: NS 1000 ML IV SCH (10:00)
[2017-07-18] MEDS ORDERED: VANCOMYCIN 1000 MG/NS 250 ML IV SCH ×2 (10:00)
[2017-07-18] MEDS ORDERED: ceFAZolin 2 GM PREMIX 50 ML IV SCH (10:00)
[2017-07-18] MEDS ORDERED: MUPIROCIN 2% OINT 1 APPLIC/GM SYR NASAL SCH (10:00)
[2017-07-18 10:05] LABS: AUTOMATED NEUTROPHIL # 6.5 TH/MM3 (1.8-7.7); BASOPHIL # 0.1 TH/MM3 (0-0.2); BASOPHIL % 0.6 % (0.0-2.0); EOSINOPHIL # 0.1 TH/MM3 (0-0.4); EOSINOPHIL % 1.2 % (0.0-4.0); HEMATOCRIT 41.1 % (39.0-51.0); HEMO FLAGS DIFF FINAL; LYMPH % 20.6 % (9.0-44.0); LYMPHOCYTE # 1.9 TH/MM3 (1.0-4.8); MEAN CELL VOLUME 84.5 FL (80.0-100.0); MEAN CORPUSCULAR HEMOGLOBIN 29.1 PG (27.0-34.0); MEAN CORPUSCULAR HGB CONC 34.4 % (32.0-36.0); MONO % 7.7 % (0.0-8.0); NEUT % 69.9 % (16.0-70.0); PLATELET COUNT 329 TH/MM3 (150-450); RED BLOOD COUNT 4.87 MIL/MM3 (4.50-5.90); RED CELL DISTRIBUTION WIDTH 13.2 % (11.6-17.2); WHITE BLOOD COUNT 9.3 TH/MM3 (4.0-11.0)
[2017-07-18] MEDS ORDERED: LISI-519 PO (10:11)
[2017-07-18 10:13] LABS: APTT (PATIENT) 27.1 SEC (24.3-30.1); INTERNATIONAL NORMALIZED RATIO 1.1 RATIO; PROTHROMBIN TIME - PATIENT 11.4 SEC (9.8-11.6)
[2017-07-18] MEDS ORDERED: POVIDONE IODINE 5% (ANTISEPSIS KIT) 4 APPLICATIONS EACH NARE PRN (10:15)
[2017-07-18] MEDS ORDERED: CHLORHEXIDINE GLUCONATE 2 % 1 PACK (2 CLOTHS) TOPICAL PRN (10:15)
[2017-07-18] MEDS ORDERED: LACTATED RINGER'S 1000 ML IV PRN (10:15)
[2017-07-18] MEDS ORDERED: SODIUM CHLORID 0.9% 500 ML IV PRN (10:15)
[2017-07-18] MEDS ORDERED: METOPROLOL TARTRATE 25 MG TAB PO PRN (10:15)
[2017-07-18 10:24] LABS: BICARBONATE 26.8 MEQ/L (21.0-32.0)
[2017-07-18] MEDS ORDERED: PROPOFOL 200 MG/20 ML AMP ONE (12:56)
[2017-07-18] MEDS ORDERED: MIDAZOLAM HCL 2 MG/2 ML VIAL ONE (12:57)
[2017-07-18] MEDS ORDERED: KETAMINE HCL 500 MG/10 ML VIAL ONE (12:57)
[2017-07-18] MEDS ORDERED: VANCOMYCIN 500 MG VIAL ONE (13:50)
[2017-07-18] MEDS ORDERED: LIDOCAINE HCL 2% 50 ML VIAL ONE (13:50)
--- NOTE | 2017-07-18 14:51 | EKG ---
Date Performed: 07/18/2017 Time Performed: 09:43:26 PTAGE: 67 years EKG: Sinus rhythm with PVC(s) with 1st degree A-V block. Left bundle branch block Abnormal ECG NO PREVIOUS TRACING DOCTOR: Kermit Guerin Interpretating Date/Time 07/18/2017 14:49:37
--- NOTE | 2017-07-18 16:45 | CATHPROC ---
[employer] HIS Report Study Information Study Number Admission Scheduled Start Study Start [id number] Jul 18 2017 8:49AM 07/18/2017 Jul 18 2017 12:31PM [place] [facility] Cardiac Pacer/ICD Admit Source Facility Department Other [facility] - [facility] Reservations Coordinator Physician and Clinical Staff Initial Clement Marcano Gis Web Developer Jaye De La Torre,RT(R) Additional Rea Oscar Gis Web Developer Savi Santiago,HIDE DROPPER TECH2 Other Anesthesia, EXPLOSIVES OPERATOR Recorder Jaye Chi,RN Scrub Jayro Morin,RT(R) Procedures Performed Procedure Location (Site) Vessel Name Lead Insertion Venogram Subclav. Vein (Lft Subclavian Vein Wire insertion Fem Art (right) Femoral Art Wire insertion Subclav. Vein (Lft Subclavian Vein Equipment Time Process Control Manager Description Size Mfg Part Number Used/Scraped [id number] 14:43 [employer] WIRE, [id number] PROWATER 180CM 180CM Used *[id number] CATHETER, FR5 SWAN RHEA 14:37 BENZ IVRESON FR 5 110F5 *[id number] Used MONITOR DEFIBRILLATOR, ITREVIA 7 HF-T 16:12 BIOTRONIK VDE-DDDRV [id number] Used QP 14:31 BIOTRONIK LEAD, PLEXA PRO-MRI SD 65/18 [id number] Used LEAD, SENTUS PRO-MRI OTW QP 16:12 BIOTRONIK * [id number] Used L-85/49 14:30 BIOTRONIK LEAD, SOLIA 60 53 PRO MRI * [id number] Used [id number] 16:20 [employer] INC NICOLASA, HEMOSTAT 1 GRAM Used *[id number] 16:27 [employer] NICOLASA, HEMOSTAT 1 GRAM Used *[id number] TP-1103 12:33 MEDLINE INDUSTRIES SUTURE, STRIP PLUS 1/2" * Used *[id number] 12:33 MEDLINE PACER ADHESIVE, MASTISOL 2/3CC 2/3CC 0523-48 Used 12:33 MEDLINE PACER ARELLANO, LIMB * 2530 *[id number] Used [id number] 12:33 MEDLINE PACER PACK, PACER CUSTOM * Used *[id number] 12:33 MEDLINE PACER PEN, SKIN DUAL W/ RULER * Used *[id number] 15:30 MEDTRONIC AL 1 DXTERITY CATHETER FR 5 Used *[id number] 14:36 [employer] MEDICAL WIRE, 3MMJ .035 180CM 180CM Used *[id number] 14:05 [employer] MEDICAL PACER SAFE SHEATH, FR7, 13CM FR 7 [id number] Used 14:05 [employer] MEDICAL PACER SAFE SHEATH, FR8, 13CM FR 8 [id number] Used 14:05 [employer] MEDICAL PACER SAFE SHEATH, FR9, 13CM FR 9 CLS-1009 Used 14:04 Needle Sponge Count 2 22 Used 14:04 Needle Sponge Count 30 1 Used 14:04 Needle Sponge Count 5 5 Used 14:06 NYCOMED OMNIPAQUE, 300 MG, 50ML 50ML [id number] Used [id number] *[id number] SUTURE, 3-0 VICRYL [SH] (CON462E) SUTURE, 3-0 VICRYL [SH] (CTV147R) SUTURE, 4-0 MONOCRYL [PS2] (Y496G) [id number] 12:33 [employer] BLANKET,WARM AIR CCL * Used *[id number] 16:00 [employer] MEDICAL LIVEWIRE, QUAD, MED SWEEP FR 6 066005 Used 14:49 TER[employer] MEDICAL/MARIA EUGENIA VISE, MULTI TORQUE * TD01 Used [facility] PAD, ELECTROSURGICAL 12:33 * [id number] *[id number] Used SURGICAL GROUNDING ORANGE 8541-7344 12:33 [employer] ANGELES. / * Used *46693 Equipment Model, Serial, Lot Number and Expiration Data Description Model Number Serial Number Lot Number Expiration D ate DEFIBRILLATOR, ITREVIA 7 HF-T [id number] 03-05-2018 QP LEAD, PLEXA PRO-MRI SD 65/18 778008 [id number] 03-05-2019 LEAD, SENTUS PRO-MRI OTW QP 093500 [id number] 03-05-2019 L-85/49 LEAD, SOLIA 60 53 PRO MRI [id number] 06-05-2019 History: Allergies Allergy Reaction trazodone Labs Hgb (g/dl) Hct (%) WBC (l/cumm) Platelets (thousands) 11.60-17.00 35.00-51.00 4.00-11.00 150.00-450.00 14.0 41 9.3 329 Glucose (mg/dl) BUN (mg/dl) Creatinine (mg/dl) BUN:Creatinine (1:x) 74.00-106.00 7.00-18.00 0.50-1.30 10.00-20.00 109 12 1.0 12 Na (meq/l) K (meq/l) 136.00-145.00 3.50-5.10 130 4 INR (PTT:PT) 0.90-1.10 1.1 Medication Medication Total Dose (Bolus/Oral) Medication Total Dosage/Unit 2% XYLOCAINE 50 mL Medications (Bolus/Oral) Medication Time Given Dosage/Unit Administered By Reason 2% XYLOCAINE 07/18/2017 2:20:27 PM 50 mL Anesthesia, EXPLOSIVES OPERATOR 50 mL 2% XYLOCAINE given in lab by Anesthesia, EXPLOSIVES OPERATOR in Left shoulder via Subcutaneous. Ordered by Clement Mistry. left upper chest Medication (Drip) Medication Time Given Dosage/Unit Concentration/Unit Diluent (ml) Solution ANCEF 07/18/2017 1:56:41 PM 2 g 2 g ANCEF given in lab by Anesthesia, EXPLOSIVES OPERATOR via Peripheral IV. Ordered by Clement Bear. Reason: As per physicians verbal order. VANCOMYCIN DRIP 07/18/2017 1:56:55 PM 1 g 1 g VANCOMYCIN DRIP given in lab by Anesthesia, EXPLOSIVES OPERATOR via Peripheral IV. Ordered by Clement Bear. Reas on: As per physicians verbal order. Initial Case Assessment Cardiovascular HR Rhythm NIBP Chest Pain 76 sr 131/71 0 Edema Present Skin color Skin None Normal Warm Dry Circulatory - Right Pulses Radial 2 Scale (0,1,2,3,4,d) Circulatory - Left Pulses Radial 2 Scale (0,1,2,3,4,d) Circulatory - Lower Extremities Color Lower Right Color Lower Left Normal Normal Neurological State Oriented to time-place- Alert Moves all extremities person Respiration - General Respiration Rate SpO2 (%) (B/min) 18 100 Final Case Assessment Cardiovascular HR Rhythm NIBP Chest Pain 80 SR 120/64 0 Edema Present Skin color Skin None Normal Warm Dry Circulatory - Right Pulses Dorsalis Pedis 1 Scale (0,1,2,3,4,d) Circulatory - Left Pulses Dorsalis Pedis 1 Scale (0,1,2,3,4,d) Neurological State Oriented to time-place- Alert Moves all extremities person Respiration - General Respiration Rate SpO2 (%) O2 (lpm) (B/min) 18 100 2 Chronological Log Time Study Chronological Log 13:43:37 Patient arrived via Bed. 13:43:38 Patient Name, D.O.B, / Armband Verified By R.N. 13:43:38 Consent signed by the physician and the patient and verified by the Group Reservations Coordinator staff. 13:43:39 Pre-op and post- op instructions given; patient acknowledges understanding of instructions. 13:43:40 Verbal Stimulation=2 Physical Stimulation=2 Airway=2 Respiration=2 TOTAL=8. (0=absent, 1=li mited, 2=present) 13:43:40 Anesthesia at bedside. Assumes care of patient. Ignacio 13:44:08 Skin Breakdown-none per pt 13:44:16 Patient Warmer Placed on the Table. 13:44:17 Disposable Defibrillator Pads Placed On Patient. 13:44:21 Katie Prominences Protected 13:44:23 A # 20 IV was noted in the Antecubital (left). Grade = 0 0.9ns kvo 13:44:27 A # 20 IV was noted in the Antecubital (right). Grade = 0 0.9ns kvo 13:44:30 History and physical on the chart. 13:52:07 Table restraints applied according to hospital policy 13:52:42 Left Upper Chest Prepped Times Two. 2 g ANCEF given in lab by Anesthesia, EXPLOSIVES OPERATOR via Peripheral IV. Ordered by Clement Bear. Reason: As per physicians 13:56:41 verbal order. Assessment: Initial Case, HR=76 BPM, Rhythm=sr, ZAKM=688/71 mmhg, Chest Pain=0, Edema=None, Col or=Normal, Skin = Warm, Dry Right Pulses: Radial=2 Left Pulses: Radial=2 13:56:50 Lower Right Extremities: Color=Normal Lower Left Extremities: Color=Normal Neurological: State=Alert, Ox3, PROCTOR Respiration: Resp=18 B/min, AuD3=101 % 1 g VANCOMYCIN DRIP given in lab by Anesthesia, EXPLOSIVES OPERATOR via Peripheral IV. Ordered by Clement Bear . Reason: As per 13:56:55 physicians verbal order. 14:01:55 Reference ECG taken 14:03:34 2% CHLORHEXIDINE GLUCONATE WASH AND NASAL SWIPE DONE PRIOR TO PROCEDURE. 14:03:45 Bovie ground pad applied to: right thigh First Sponge And Instrument Count Done by Jayro Morin, RT(R). 14:03:59 Hypo's: 5, Sponges: 30, Bovie/scratch: 2 Sutures: 6, Blades: 2, Instruments: 26, Syveck Patches: 0 verified w RW 14:08:47 paged 14:10:00 responded 14:14:22 MD arrived. Time Out. Correct patient, procedure, procedure equipment, site and side verified with physicia n present. Time 14:18:37 concurred by MD, individual staff and EXPLOSIVES OPERATOR. Time Out #2 - Consents verified, patient in correct position, all results are labled and displa yed, safety precautions 14:18:43 taken, antibiotics administered. Time out concurred by MD, individual staff and EXPLOSIVES OPERATOR in procedu re 14:19:01 Case Start 14:19:41 The Subclav. Vein (Lft was manually injected with 15 cc's of contrast. OMNIPAQUE, 300 MG, 5 0ML 50ML used. 50 mL 2% XYLOCAINE given in lab by Anesthesia, EXPLOSIVES OPERATOR in Left shoulder via Subcutaneous. Ordered by Clement Bear. 14:20:27 left upper chest 14:20:55 Surgical Incision Made. 14:22:14 Two antibiotic sponges put into the surgical pocket. 14:22:55 Vascular access was obtained in the Subclav. Vein (Lft. 14:23:02 Wire inserted 14:23:20 Vascular access was obtained in the Subclav. Vein (Lft. 14:23:23 Wire inserted 14:23:58 Vascular access was obtained in the Subclav. Vein (Lft. 14:24:02 A wire was inserted via Fem Art (right). 14:24:07 A pocket was created at the L Upper Chest. 14:24:59 A SAFE SHEATH, FR8, 13CM FR 8 was advanced into the Subclav. Vein (Lft using the Modified S eldinger technique. 14:27:31 A LEAD, PLEXA PRO-MRI SD 65/18 was inserted and positioned in the RV. 14:28:47 Lead placement verified under fluoroscopy 14:28:49 The RV lead impedance and threshold being tested. 14:32:31 The RV lead was sutured to the fascia. 14:33:10 A SAFE SHEATH, FR9, 13CM FR 9 was advanced into the Subclav. Vein (Lft using the Modified S eldinger technique. 14:34:56 Lead placement verified under fluoroscopy 14:43:15 Wire inserted 14:44:50 CS MEDTRONIC DELIVERY SYSTEM INSERTED 14:46:29 A WIRE, 3MMJ .035 180CM 180CM was inserted via Subclav. Vein (Lft. 14:53:21 UNABLE TO CANNULATE CS, CS SYSTEM REMOVED 14:59:01 NEW MEDTRONIC CS DELIVERY SYSTEM INSERTED 14:59:31 UNABLE TO CANNULATE CS, 2ND CS DELIVERY SYSTEM REMOVED 15:02:17 INSERTED 3RD MEDTRONIC DELIVERY SYSTEM 15:16:25 Subselector inserted and advanced via Medtronic delivery system. 15:27:17 Subselector removed, unable to cannulate. 15:28:05 Medtronic 5FR AL1 diagnostic catheter inserted and advanced via CS delivery system. 15:37:43 ALL CS HARDWARE REMOVED 15:38:52 A SAFE SHEATH, FR7, 13CM FR 7 was advanced into the Subclav. Vein (Lft using the Modified S eldinger technique. 15:39:50 A LEAD, SOLIA 60 53 PRO MRI * was inserted and positioned in the RA. 15:39:57 Lead placement verified under fluoroscopy 15:40:10 The Atrial lead impedance and threshold is being tested. 15:41:01 The Atrial lead was sutured to the fascia. 15:58:46 DR CONNELLY BACK SCRUBBED IN 15:59:55 A SAFE SHEATH, FR9, 13CM FR 9 was advanced into the Subclav. Vein (Lft using the Modified S eldinger technique. A LIVEWIRE, QUAD, MED SWEEP FR 6 was advanced vis Subclav. Vein (Lft and placed in the CS. Plac ement was 16:00:11 visually confirmed under fluoroscopy. 16:01:10 The Subclav. Vein (Lft was manually injected with 10 cc's of contrast. OMNIPAQUE, 300 MG, 5 0ML 50ML used. 16:08:02 A LEAD, SENTUS PRO-MRI OTW QP L-85/49 * was inserted and positioned in the CS/LV. 16:20:26 Lead placement verified under fluoroscopy 16:20:28 The CS/LV lead impedance and threshold is being tested. 16:20:29 The CS/LV lead was sutured to the fascia. 16:22:14 Antibiotic sponges removed from the surgical pocket. 16:22:19 A DEFIBRILLATOR, ITREVIA 7 HF-T QP VDE-[id number] was connected and placed in the pocket. SECOND Sponge And Instrument Count Done by Jayro Morin RT(R). 16:23:57 Hypo's: 5, Sponges: 30, Bovie/scratch: 2 Sutures: 6, Blades: 2, Instruments: ~INSTRU~, Syveck Patches: 0 verified w SC 16:26:50 A TWO Joul DFT was performed. 16:27:15 The DFT was Success at 20 Joules, 47 Ohms lead impedance and 4SEC charge time. 16:37:15 The pocket was closed. 16:37:18 Implant Procedure was performed. 16:37:23 A Bivent ICD Implant . (Dual) 16:37:32 DOCU called. Spoke to DEISY FINAL Sponge And Instrument Count Done by Jayro Morin RT(R). 16:37:55 Hypo's: 5, Sponges: 30, Bovie/scratch: 2 Sutures: 6, Blades: 2, Instruments: 26, Syveck Patches: 0 verified w RW 16:39:12 Steri-strips and a sterile dressing applied to site. 16:39:13 A sling was placed on the affected arm. Assessment: Final Case, HR=80 BPM, Rhythm=SR, XKJE=398/64 mmhg, Chest Pain=0, Edema=None, Color =Normal, Skin = Warm, Dry Right Pulses: Robin Ped=1 16:39:17 Left Pulses: Robin Ped=1 Neurological: State=Alert, Ox3, PROCTOR Respiration: Resp=18 B/min, YnP1=396 %, O2=2 lpm 16:40:02 Sterile dressing applied to site 16:40:02 No case complications noted. 16:40:04 Cine recording checked. 16:40:06 Bedside Report will be given. 16:40:07 Implantable Device card placed in patient's chart. 16:41:59 Case End End Study - Contrast Media Used In Study Contrast Total Opened (mL) Total Used (mL) Total Wasted (mL) Omnipaque 80 80 0 End Study - Maximum Contrast Load Max Contrast Load (mL) 448.4 End Study - Radiation Exposure Fluoro Time (minutes) 42.6 End Study - Patient Disposition Complications Transferred To Interventional Outcome No Telemetry Bed successful
[2017-07-18] MEDS ORDERED: traMADol HCL 50 MG TAB PO PRN (17:00)
[2017-07-18] MEDS ORDERED: ZOLPIDEM TARTRATE 5 MG TAB PO PRN (17:00)
--- NOTE | 2017-07-18 17:47 | RADRPT ---
EXAM DATE/TIME: 07/18/2017 17:01 [place] COMPARISON: No previous studies available for comparison. INDICATIONS : Short of breath. Evaluate for pneumothorax. MEDICAL HISTORY : None. SURGICAL HISTORY : Pacemaker. ENCOUNTER: Initial ACUITY: 1 day PAIN SCORE: 3/10 LOCATION: Bilateral chest FINDINGS: Dual-lead AICD device in place. Mild interstitial prominence with subtle left basilar airspace diseas e. Cardiac silhouette is mildly enlarged. Bony thorax is intact. CONCLUSION: 1. Mild cardiomegaly with trace positive fluid balance. 2. Minimal left lower lung zone airspace disease, likely atelectasis. 3. No significant pneumothorax. Raffaele Agarwal MD on July 18, 2017 at 17:43 Board Certified Radiologist. This report was verified electronically.
[2017-07-18] MEDS ORDERED: ATORVASTATIN 40 MG TAB PO SCH (21:00)
[2017-07-18] MEDS: TICAGRELOR 90 MG TAB PO SCH (21:25)
[2017-07-18] MEDS: METOPROLOL TARTRATE 25 MG TAB PO SCH (21:25)
[2017-07-18] MEDS: busPIRone HCL 5 MG TAB PO SCH (21:25)
[2017-07-19] VITALS (10 sets, daily range): BP systolic 98–121; BP diastolic 56–61; PULSE 76–86; RESP 18; TEMP 98.7–98.9; O2SAT 95–96
[2017-07-19] MEDS ORDERED: VANCOMYCIN INJ 1,000 MG in SODIUM CHLOR 0.9% 250 ML INJ 250 ML IV ONE (03:00)
--- NOTE | 2017-07-19 08:17 | PD.CARD.PN ---
Subjective Subjective Remarks No pain, dyspnea, dizziness. Objective Medications Item Value Date Time Aspirin 81 mg 07/20/17 0900 (Ecotrin Ec) EVERY OTHER DAY/PO Lisinopril 5 mg 07/19/17 0900 (Prinivil) DAILY/PO Spironolactone 25 mg 07/19/17 09 (Aldactone) DAILY/PO Atorvastatin 40 mg 07/18/172099 Calcium HS/PO 07/18/172124 (Lipitor) Metoprolol 25 mg 07/18/172099 Tartrate BID/PO 07/18/172124 (Lopressor) Ticagrelor 90 mg 07/18/172099 (Brilinta) BID/PO 07/18/172124 Current Medications Medications (Trade) Dose Ordered Sig/Kendal Route Start Time Stop Time Status Last Admin Miscellaneous Information Hold AM Insulin & ... UNSCH PRN .XX 07/18/17 10:00 07/22/17 09:59 Miscellaneous Information NO Heparin, Loven... UNSCH PRN .XX 07/18/17 10:00 07/22/17 09:59 Sodium Chloride 1,000 ml @ 30 mls/hr Q24H IV 07/18/17 10:00 07/18/17 10:00 (Ambien) 5 mg HS PRN PO 07/18/17 17:00 (Ultram) 50 mg Q6H PRN PO 07/18/17 17:00 (Ecotrin Ec) 81 mg EVERY OTHER DAY PO 07/20/17 09:00 (Lipitor) 40 mg HS PO 07/18/17 21:00 07/18/17 21:25 (Buspar) 5 mg TID PO 07/18/17 18:00 (Prinivil) 5 mg DAILY PO 07/19/17 09:00 (Lopressor) 25 mg BID PO 07/18/17 21:00 07/18/17 21:25 (Aldactone) 25 mg DAILY PO 07/19/17 09:00 (Flomax) 0.4 mg DAILY PO 07/19/17 09:00 (Brilinta) 90 mg BID PO 07/18/17 21:00 07/18/17 21:25 Vital Signs / I&O Vital Signs Date Time Temp Pulse Resp B/P (MAP) Pulse Ox O2 Delivery O2 Flow Rate FiO2 07/19/17 06:18 83 07/19/17 05:14 77 07/19/17 04:13 76 07/19/17 03:39 98.9 81 18 98/56 (70) 95 07/19/17 03:39 81 07/19/17 02:20 80 07/19/17 01:16 86 07/19/17 00:09 78 07/18/17 23:49 98.3 94 17 88/53 (65) 96 07/18/17 23:15 80 07/18/17 22:00 82 07/18/17 21:00 86 07/18/17 20:00 98 07/18/17 19:50 91 07/18/17 19:45 98.0 87 18 117/60 (79) 98 07/18/17 10:39 98.1 78 18 120/67 (84) 100 I/O 07/18/17 07/18/17 07/18/17 07/19/17 07/19/17 07/19/17 07:00 15:00 23:00 07:00 15:00 23:00 Intake Total 730 ml Balance 730 ml Intake Oral 480 ml IV Total 250 ml # Voids 2 Physical Exam Incision clean, dry, intact, no hematoma. Moderate ecchymosis. Laboratory Laboratory Tests Test 07/18/17 09:15 White Blood Count 9.3 TH/MM3 Red Blood Count 4.87 MIL/MM3 Hemoglobin 14.2 GM/DL Hematocrit 41.1 % Mean Corpuscular Volume 84.5 FL Mean Corpuscular Hemoglobin 29.1 PG Mean Corpuscular Hemoglobin Concent 34.4 % Red Cell Distribution Width 13.2 % Platelet Count 329 TH/MM3 Mean Platelet Volume 7.0 FL Neutrophils (%) (Auto) 69.9 % Lymphocytes (%) (Auto) 20.6 % Monocytes (%) (Auto) 7.7 % Eosinophils (%) (Auto) 1.2 % Basophils (%) (Auto) 0.6 % Neutrophils # (Auto) 6.5 TH/MM3 Lymphocytes # (Auto) 1.9 TH/MM3 Monocytes # (Auto) 0.7 TH/MM3 Eosinophils # (Auto) 0.1 TH/MM3 Basophils # (Auto) 0.1 TH/MM3 CBC Comment DIFF FINAL Differential Comment Prothrombin Time 11.4 SEC Prothromb Time International Ratio 1.1 RATIO Activated Partial Thromboplast Time 27.1 SEC Blood Urea Nitrogen 12 MG/DL Creatinine 1.02 MG/DL Random Glucose 109 MG/DL Calcium Level 9.2 MG/DL Sodium Level 130 MEQ/L Potassium Level 4.0 MEQ/L Chloride Level 97 MEQ/L Carbon Dioxide Level 26.8 MEQ/L Anion Gap 6 MEQ/L Estimat Glomerular Filtration Rate 72 ML/MIN Imaging Last 24 hours Impressions Chest X-Ray 07/18/17 1652 Signed Impressions: Service Date/Time: Tuesday, July 18, 2017 17:01 - CONCLUSION: 1. Mild cardiomegaly with trace positive fluid balance. 2. Minimal left lower lung zone airspace disease, likely atelectasis. 3. No significant pneumothorax. Raffaele Agarwal MD Assessment and Plan Problem List: (1) S/P implantation of automatic cardioverter/defibrillator (AICD) ICD Codes: Z95.810 - Presence of automatic (implantable) cardiac defibrillator Status: Acute Plan: Stable overnight. No pneumothorax on post op CXR. ICD site OK except moderate bruising; no significant hematoma. Re-interrogation of ICD by rep shows good, stable pacing, defibrillatory parameters. PLAN discharge today, same home medications plus Levaquin 500 mg qd fo 7 days one week f/u for incision and ICD recheck (2) CAD (coronary artery disease) ICD Codes: I25.10 - Atherosclerotic heart disease of [place] coronary artery without angina pectoris Status: Chronic Plan: Stable s/p PCI earlier this year. No angina. Continue Brilinta and aspirin. (3) Cardiomyopathy ICD Codes: I42.9 - Cardiomyopathy, unspecified Status: Chronic Plan: Stable. Compensated. EF 20-25% by recent echo. Continue same regimen. Code Status full code Discussed Condition With patient Problem Qualifiers (1) CAD (coronary artery disease): Qualified Codes: I25.10 - Atherosclerotic heart disease of [place] coronary artery without angina pectoris (2) Cardiomyopathy: Qualified Codes: I25.5 - Ischemic cardiomyopathy Clement Bear MD Jul 19, 2017 08:17
[2017-07-19] MEDS ORDERED: LEVA500T33 PO (08:20)
--- NOTE | 2017-07-19 08:26 | MP ---
cc: JEFFREY GENAO GLENN H. M.D. DATE OF SURGERY: 07/18/2017 PROCEDURE 1. Very difficult dual-chamber biventricular AICD implant via the left subclavian vein. 2. AICD defibrillation threshold testing. OPERATIVE NOTES The patient was brought to the operating suite in a fasting state after having signed informed consent. The left upper chest was prepped and draped as per policy and anesthetized with 1% lidocaine. 15 ccs of contrast was administered through a left arm peripheral IV. This helped us localize the left subclavian vein. A transverse incision was made inferior to the left clavicle and using blunt dissection a subcutaneous pocket was formed down to the pectoralis fascia. Using modified Seldinger technique central venous access was obtained three times via the left subclavian vein. Over the most lateral guidewire an 8-[place]cu[place] sheath was placed and through this sheath a ventricular active fixation lead was introduced and its tip positioned in the right ventricular apex where good current of injury, stimulation threshold (0.8 volts) and sensitivity (21.5 mV) were demonstrated. This lead was secured into place using 2-0 silk ties down to the pectoralis fascia. Over the middle guidewire a 9-[place] sheath was placed and through this sheath a coronary sinus guiding catheter was introduced. Despite prolonged extensive attempts we were unable to engage the coronary sinus ostium with this catheter. It was exchanged for two other coronary sinus guiding catheters without success. We also tried a number of different sub-selectors through the guide without success in engaging the coronary sinus. We finally asked Dr. Rea Garzon to use a quadripolar steering mechanism to help localize the ostium of the coronary sinus. With some difficulty the guiding catheter was advanced over the steerable device and the coronary sinus intubated. Through the coronary sinus sheath a left ventricular lead was introduced and its tip positioned in the anterolateral region where good stimulation threshold (0.9 volts) and sensitivity (18.9 mV) were demonstrated. This lead was secured into place using 2-0 silk ties down to the pectoralis fascia. While waiting for Dr. Garzon, a 7 [place] sheath was placed over the most medial guidewire and through this sheath an atrial active fixation lead was introduced and its tip placed in the right atrial appendage where good current of injury, stimulation threshold and sensitivity were demonstrated. This lead was secured into place using 2-0 silk ties down to the pectoralis fascia. The leads were then connected to the AICD generator which is a Biotronik Itrevia device. The leads and the generator were replaced back into the subcutaneous pocket. Testing of the device was then performed. Ventricular fibrillation was induced. The patient was successfully rescued with a 20 joule shock after a charge time of 4 seconds, at a shock impedance of 47 ohms. The pocket was then closed using 3-0 Vicryl interrupted stitches in two layers to close the subcutaneous tissue and then 4-0 Monocryl running stitch to close the subcuticular tissue. Steri-Strips and a pressure dressing were applied. There were no apparent immediate complications. A portable chest x-ray is pending at the time of this dictation. CONCLUSION 1. Successful though difficult implantation of a dual-chamber biventricular AICD using a Biotronik Itrevia AICD generator. 2. Status post AICD defibrillation threshold testing. MD JAE Baker/TLChay /4:47 PM /8:02 AM [facility]
[2017-07-19] MEDS: TICAGRELOR 90 MG TAB PO SCH (08:27)
[2017-07-19] MEDS: METOPROLOL TARTRATE 25 MG TAB PO SCH (08:27)
[2017-07-19] MEDS: busPIRone HCL 5 MG TAB PO SCH (08:51)
[2017-07-19] MEDS ORDERED: TAMSULOSIN HCL 0.4 MG CAP PO SCH (09:00)
[2017-07-19] MEDS ORDERED: LISINOPRIL 5 MG TAB PO SCH (09:00)
[2017-07-19] MEDS ORDERED: SPIRONOLACTONE 25 MG TAB PO SCH (09:00)
[2017-07-19] MEDS: NS 1000 ML IV SCH (10:00)
[2017-07-20] MEDS ORDERED: ASPIRIN EC 81 MG TABEC PO SCH (09:00)
== END 2017-07-19 11:00 | disposition home or self-care (01) ==
LOC: HDIC 08:49 → HDOC 08:49 → HCPC 20:17 → HDOC 07-19 11:00
PROVIDERS: ATTEND Internal Medicine Cardiovascular Disease
DX: I11.0 Hypertensive heart disease with heart failure (principal); I50.9 Heart failure, unspecified; I25.5 Ischemic cardiomyopathy; I25.10 Atherosclerotic heart disease of native coronary artery without angina pectoris; I44.7 Left bundle-branch block, unspecified; E78.5 Hyperlipidemia, unspecified; R53.83 Other fatigue; R06.00 Dyspnea, unspecified; Z79.82 Long term (current) use of aspirin
CPT/HCPCS: 00530; 33225; 33249; 71010; 80048; 85025; 85610; 85730; 93005; 93641; C1730; C1769; C1882; C1895; C1898; C1900; J0690; J2250; J3370; J7030; J7050